=== PATIENT | male | born 1940 | race Two or more races ===

== ENCOUNTER 2024-03-12 14:21 | Emergency (ER) | payer OTHER, SELFPAY ==
[2024-03-12 14:28] VITALS: BP 121/63
--- NOTE | 2024-03-12 17:36 | ED.MUSCINJ ---
HPI-Injury
General
Chief Complaint: Musculo-Skeletal Complaint
Source: patient
Exam Limitations: none
Time Seen by Provider: 03/12/24 15:29
Travel History
Have you had any contact with someone who has COVID-19?: No
Do you have any symptoms of coronavirus? Fever > 100 degrees, chills, cough, shortness of breath, sore throat, loss of taste or smell, muscle aches, or headache?: No
History of Present Illness-Injury
Initial Injury comments:
83-year-old male Wednesday dialysis patient presents 9 days after a fall he sustained going into dialysis. He landed awkwardly and since then has had lower back pain that radiates down his right thigh and into his foot. He states
most of his pain is in the right thigh. He has been using a walker to ambulate. No other complaints at this time
Past History
Past History
ED Past Medical History: Other (Renal failure. Pulmonary fibrosis)
ED Past Surgical History: Other (Hemorrhoid surgery)
Phy Exam
Physical Exam
Physical Exam:
General: Well-appearing male no acute respiratory distress HEENT: Normocephalic atraumatic
Heart: Regular rate and rhythm no murmurs
Lungs: Clear no wheeze
Musculoskeletal exam: Lumbar spine nontender. He is tender over the anterior right thigh
Neurologic: Good sensation bilateral lower extremities. Bilateral patellar reflexes 1+
Extremities no cyanosis or
Injury Course
Orders/Labs/Results
Orders:
Orders
03/12/24 15:42
CR Femur - Right Min 2 Vw Urgent
Comment:
Reason For Exam: fall, thigh pain
CR Lumbar Spine 2 Or 3 Views Urgent
Comment:
Reason For Exam: fall, back pain
CR Pelvis - 1 Or 2 Views Urgent
Comment:
Reason For Exam: fall
MDM/Problems Addressed
Differential Diagnosis Includes:
Lower back pain rating down the right leg. X-rays of the back pelvis and right femur pending secondary to trauma. Consider contusion versus radiculopathy versus fracture
I have personally reviewed the x-rays which are negative for acute findings. Suspect underlying radiculopathy. Recommended anti-inflammatories such as prednisone stable for discharge
*Critical Care Note
Total Time (30-74mins, 75-104mins- exclusive of procedures): Not Applicable
ED Attending Note
-
Portions of this chart may have been created with voice recognition software.� Occasional wrong word or��sound alike� substitutions may have occurred due to the inherent limitations of voice recognition software.
Discharge Plan
Departure
Patient Disposition: Home (Routine Discharge)
Date of Disposition: 03/12/24
Time of Disposition: 17:38
Patient with high blood pressure during this ER visit?: No
Discharge Problem:
Radiculopathy
Instructions: Muscle and Bone Pain (DC)
Prescriptions:
New
prednisone 10 mg Tablet
See Rx Instructions .ROUTE .COMPLEX Qty: 30 0RF
Rx Instructions:
Take By Mouth:
40 mg daily x3 days, 30 mg daily x3 days,
20 mg daily x3 days, 10 mg daily x3 days.
No Action
nifedipine [Procardia XL] 30 mg Tablet Extended Release 24hr
30 mg PO DAILY
cilostazol 100 mg Tablet
100 mg PO BID
aspirin 81 mg Tablet,Delayed Release (Dr/Ec)
81 mg PO DAILY
lorazepam 0.5 mg Tablet
0.5 mg PO BID
tamsulosin [Flomax] 0.4 mg Capsule
0.4 mg PO DAILY
bumetanide 1 mg Tablet
1 mg PO BID
montelukast 10 mg Tablet
10 mg PO HS
rosuvastatin 10 mg Tablet
10 mg PO DAILY
budesonide-formoterol 160-4.5 mcg/actuation Hfa Aerosol Inhaler
2 puff INHALATION BID PRN (Reason: shortness of breath)
nebivolol 2.5 mg Tablet
2.5 mg PO DAILY
cholecalciferol (vitamin D3) 50 mcg (2,000 unit) Tablet
50 mcg PO DAILY
albuterol sulfate 90 mcg/actuation Aerosol Powdr Breath Activated
2 inh INHALATION Q6H PRN (Reason: shortness of breath)
vitamin B complex-folic acid 2,000 mcg Capsule
1 cap PO DAILY
Referrals:
Hermelindo Wyatt DO [Family Provider] -
Activity Restrictions/Additional Instructions:
Use Tylenol for pain. Continue with prednisone peer return if worse otherwise follow-up with your family doctor
Interventions
Interventions:
*Risk Screen - Suicide Last Done: 03/12/24 16:41
*General Assessment Last Done: 03/12/24 16:41
*Neglect/Abuse Screening Last Done: 03/12/24 16:41
*ED COVID-19 Vaccine History Last Done: 03/12/24 14:32
ED-Musculoskeletal Assessment Last Done: 03/12/24 16:41
Discharge Date and Time
Print Language: MONGOLIAN
== END 2024-03-12 18:11 | disposition home or self-care (01) ==
LOC: EMR 14:21
PROVIDERS: EMERGENCY PHYSICIAN Emergency Medicine; FAMILY PHYSICIAN Family Medicine
DX: M54.10 Radiculopathy, site unspecified (principal); N19 Unspecified kidney failure; J84.10 Pulmonary fibrosis, unspecified; Z99.2 Dependence on renal dialysis
CPT/HCPCS: 99283; 72100; 72170; 73552

== ENCOUNTER 2025-02-21 14:34 | Emergency (ER) | payer OTHER, SELFPAY ==
[2025-02-21 14:42] VITALS: BP 114/41
[2025-02-21 14:43] VITALS: BP 114/41
[2025-02-21 14:56] LABS: % Basophils 0.4 % (0-2); % Eosinophils 0.9 % (0-6); % Immature Granulocytes 0.9 % (0-0.5); % Lymphocytes 8.4 % (20.5-51.1); % Neutrophils 87.4 % (42.2-75.2); Absolute Basophils 0.1 10^3/uL (0-0.2); Absolute Eosinophils 0.2 10^3/uL (0-0.7); Absolute Immature Granulocytes 0.2 10^3/uL (0-0.05); Absolute Lymphocytes 1.7 10^3/uL (1.2-3.4); Absolute Monocytes 0.4 10^3/uL (0.1-0.6); Absolute Neutrophils 17.8 10^3/uL (1.4-6.5); Hematocrit 35.1 % (39.0-52.0); Hemoglobin 11.4 g/dL (13.0-18.0); Mean Corp Hgb Conc. 32.5 g/dL (33.0-37.0); Mean Corpuscular Hgb 29.5 pg (27.0-31.0); Mean Corpuscular Volume 90.7 fL (80.0-94.0); Mean Platelet Volume 9.5 fL (7.4-10.4); Nucleated Red Blood Cells % 0 % (-); Platelet Count 240 10^3/uL (130-400); Red Blood Cell Count 3.87 10^6/uL (4.70-6.10); Red Cell Dist. Width 15.5 % (11.5-14.5); White Blood Cell Count 20.4 10^3/uL (4.8-10.8)
[2025-02-21 15:00] VITALS: BP 103/86
[2025-02-21 15:23] LABS: Troponin I < 0.012 ng/ml
[2025-02-21 15:44] LABS: ALT (SGPT) 11 U/L (0-50); AST (SGOT) 24 U/L (17-59); Albumin 3.9 g/dl (3.5-5.0); Alkaline Phosphatase 119 U/L (38-126); Blood Urea Nitrogen 28 mg/dl (9-20); Calcium 8.1 mg/dl (8.4-10.2); Carbon Dioxide 30 mmol/L (22-30); Chloride 101 mmol/L (98-107); Glucose 157 mg/dl (70-99); Potassium 3.7 mmol/L (3.5-5.1); Sodium 138 mmol/L (135-145); Total Bilirubin 0.7 mg/dl (0.2-1.3); Total Protein 7.2 g/dl (6.3-8.2); eGFR 15.44
[2025-02-21 16:00] VITALS: BP 111/58
[2025-02-21 17:00] VITALS: BP 108/54
[2025-02-21 17:43] VITALS: BP 116/52
[2025-02-21 18:21] LABS: Troponin I < 0.012 ng/ml
--- NOTE | 2025-02-21 18:33 | ED.GENMED ---
History of Present Illness
General
Chief Complaint: Chest Pain
Time Seen by Provider: 02/21/25 15:08
History of Present Illness
History of Present Illness:
84-year-old male with history of CKD on dialysis presents the emergency department for evaluation after vomiting and a syncopal event. He states he began having some discomfort in the chest toward the end of his dialysis session, felt as though he
had to vomit, he vomited then promptly syncopized and was unresponsive for several seconds. He states upon awakening his chest pain is since resolved. States that he had eaten something abnormal 2 days ago and since that time is felt as though he
wanted to vomit. At present he denies chest pain or shortness of breath.
Past History
Past History
ED Past Medical History: Other (Renal failure. Pulmonary fibrosis)
ED Past Surgical History: Other (Hemorrhoid surgery)
Review of Systems
Review of Systems
Allergies reviewed?: Yes
All Other Systems: ROS reviewed and negative except as documented in HPI and ROS
Phy Exam
Physical Exam
Physical Exam:
GEN: Well appearing, NAD, WDWN
HEENT: Oral mucosa moist, no scleral icterus
Cardiac: Regular rate and rhythm, no murmur
Lung: No respiratory distress, no tachypnea, dry crackles heard throughout lung glass bilaterally
MSK: No gross deformity or injuries
Skin: Good color, no pallor or jaundice, no rashes
Neuro: AO x3, moves all extremities freely
Psych: Calm, cooperative
Scores
Heart Score for Chest Pain Patients
STEMI patient?: No
History: Slightly or Non-Suspicious
ECG: Normal
Age: >/= 65 years
Risk Factors: 1 or 2 Risk Factors
Troponin: </= Normal Limit
Heart Score for Chest Pain Patients: 3
Heart Score Risk: 2.5% MACE over next 6 weeks
Course
Orders/Labs/Results
Orders:
Orders
02/21/25 14:37
EKG [Electrocardiogram (*1)] Urgent
Reason for Study: Chest Pain
02/21/25 14:38
EKG- Treatment ONCE
02/21/25 14:41
Complete Blood Count/With Diff Urgent
Comprehensive Metabolic Panel Urgent
Troponin I Urgent
02/21/25 16:02
CR Chest - 2 Views Urgent
Comment:
Reason For Exam: SOB
02/21/25 17:33
Electrocardiogram (*1) Urgent
Reason for Study: Chest Pain
EKG- Treatment ONCE
02/21/25 17:51
Troponin I Urgent
Abnormal Lab Results
02/21/25
14:41
WBC 20.4 H 10^3/uL
(4.8-10.8)
RBC 3.87 L 10^6/uL
(4.70-6.10)
Hgb 11.4 L g/dL
(13.0-18.0)
Hct 35.1 L %
(39.0-52.0)
MCHC 32.5 L g/dL
(33.0-37.0)
RDW 15.5 H %
(11.5-14.5)
Abs Immat Gran (auto) 0.2 H 10^3/uL
(0-0.05)
Absolute Neuts (auto) 17.8 H 10^3/uL
(1.4-6.5)
Immature Gran % 0.9 H %
(0-0.5)
Neutrophils % 87.4 H %
(42.2-75.2)
Lymphocytes % 8.4 L %
(20.5-51.1)
BUN 28 H mg/dl
(9-20)
Creatinine 3.7 H mg/dL
(0.7-1.3)
Glucose 157 H mg/dl
(70-99)
Calcium 8.1 L mg/dl
(8.4-10.2)
02/21/25 14:41
02/21/25 14:41
Vital Signs
Initial and Last Documented VS:
Initial Vital Signs
Temp
97.7 F
02/21/25 14:38
Last Documented Vital Signs
Temp Pulse Resp BP Pulse Ox
97.7 F 84 18 116/52 98
02/21/25 14:38 02/21/25 17:43 02/21/25 17:43 02/21/25 17:43 02/21/25 14:46
MDM/Problems Addressed
MDM/Problems Addressed:
Initial repeat troponin is negative. The patient be chest pain free in the ED. Suspect this chest pain was esophageal spasm preceding his vomiting episode. Syncope was most likely vasovagal. Remained stable with unremarkable labs except for
leukocytosis which I feel is most likely a stress response as he has no fever or other infectious symptoms at this time. Discharged in stable condition
*Critical Care Note
Total Time (30-74mins, 75-104mins- exclusive of procedures): Not Applicable
ED Attending Note
-
Portions of this chart may have been created with voice recognition software.� Occasional wrong word or��sound alike� substitutions may have occurred due to the inherent limitations of voice recognition software.
Discharge Plan
Departure
Patient Disposition: Home (Routine Discharge)
Date of Disposition: 02/21/25
Time of Disposition: 18:33
Patient with high blood pressure during this ER visit?: No
Discharge Problem:
Syncope, vasovagal, Vomiting
Instructions: Syncope (fainting)
Prescriptions:
No Action
nifedipine [Procardia XL] 30 mg Tablet Extended Release 24hr
30 mg PO DAILY
cilostazol 100 mg Tablet
100 mg PO BID
aspirin 81 mg Tablet,Delayed Release (Dr/Ec)
81 mg PO DAILY
lorazepam 0.5 mg Tablet
0.5 mg PO BID
tamsulosin [Flomax] 0.4 mg Capsule
0.4 mg PO DAILY
bumetanide 1 mg Tablet
1 mg PO BID
montelukast 10 mg Tablet
10 mg PO HS
rosuvastatin 10 mg Tablet
10 mg PO DAILY
budesonide-formoterol 160-4.5 mcg/actuation Hfa Aerosol Inhaler
2 puff INHALATION BID PRN (Reason: shortness of breath)
nebivolol 2.5 mg Tablet
2.5 mg PO DAILY
cholecalciferol (vitamin D3) 50 mcg (2,000 unit) Tablet
50 mcg PO DAILY
albuterol sulfate 90 mcg/actuation Aerosol Powdr Breath Activated
2 inh INHALATION Q6H PRN (Reason: shortness of breath)
vitamin B complex-folic acid 2,000 mcg Capsule
1 cap PO DAILY
prednisone 10 mg Tablet
See Rx Instructions .ROUTE .COMPLEX Qty: 30 0RF
Rx Instructions:
Take By Mouth:
40 mg daily x3 days, 30 mg daily x3 days,
20 mg daily x3 days, 10 mg daily x3 days.
Referrals:
Hermelindo Wyatt DO [Family Provider] -
Interventions
Interventions:
*Risk Screen - Suicide Last Done: 02/21/25 14:40
*General Assessment Last Done: 02/21/25 14:40
*Neglect/Abuse Screening Last Done: 02/21/25 14:40
*ED- Fall Risk Assessment Last Done: 02/21/25 14:40
*ED COVID-19 Vaccine History Last Done: 02/21/25 14:40
*Nursing Disposition Last Done: 02/21/25 18:37
ED- Cardiac Assessment Last Done: 02/21/25 14:52
Discharge Date and Time
Discharge Date/Time: 02/21/25 18:38
Print Language: CITIZEN OF [place]
== END 2025-02-21 18:38 | disposition home or self-care (01) ==
LOC: EMR 14:34
PROVIDERS: Physician Assistant; EMERGENCY PHYSICIAN Emergency Medicine; FAMILY PHYSICIAN Family Medicine
DX: R55 Syncope and collapse (principal); R11.10 Vomiting, unspecified; R07.89 Other chest pain; N18.6 End stage renal disease; Z99.2 Dependence on renal dialysis
CPT/HCPCS: 99285; 71046; 80053; 84484; 85025; 93005

== ENCOUNTER 2025-06-02 15:25 | Inpatient (IN) | payer OTHER, SELFPAY ==
[2025-06-02] VITALS (9 sets, daily range): BP systolic 89–137; BP diastolic 45–80; BMI 23.1
[2025-06-02 12:04] LABS: Hematocrit 27.9 % (39.0-52.0); Hemoglobin 8.9 g/dL (13.0-18.0); Mean Corp Hgb Conc. 31.9 g/dL (33.0-37.0); Mean Corpuscular Volume 88.6 fL (80.0-94.0); Nucleated Red Blood Cells % 0 % (-); Platelet Count 200 10^3/uL (130-400); Red Cell Dist. Width 14.7 % (11.5-14.5)
--- NOTE | 2025-06-02 12:20 | ED.GENMED ---
History of Present Illness
<Nicolasa Thomas BUDGET EXAMINER - Last Filed: 06/02/25 12:22>
General
Chief Complaint: Change in Mental Status
Time Seen by Provider: 06/02/25 12:19
<Elfego Turpin MD - Last Filed: 06/02/25 14:25>
General
Source: patient, records, family and ambulance crew
Exam Limitations: altered mental status
Nursing documentation reviewed up to this point in time: agreed with
History of Present Illness
History of Present Illness:
85-year-old male with a past medical history of ESRD on dialysis, BPH, hyperlipidemia, hypertension who presents to the ER with his family via EMS for evaluation of a change in mental status. According to his patient was in his normal state of
health this morning, had full dialysis session yesterday. He woke up around 5 AM and around 6 AM was preparing his medications to take and shortly thereafter became very lethargic and confused. EMS was called to bring her to the hospital. Per EMS
on their arrival patient lethargic, difficult to arouse, pinpoint pupils. He was given Narcan with minimal response.
According to his family, he expressed some uncertainty about whether he may have taken the wrong medications this morning�apparently lives with his son who is on seizure medications including Clozaril, Depakote, Paxil. They report that at baseline
he is awake and alert, oriented and independent.
Past History
<Nicolasa Thomas BUDGET EXAMINER - Last Filed: 06/02/25 12:22>
Past History
ED Past Medical History: Other (Renal failure. Pulmonary fibrosis)
ED Past Surgical History: Other (Hemorrhoid surgery)
Review of Systems
<Elfego Turpin MD - Last Filed: 06/02/25 14:25>
Review of Systems
Unable to obtain full review of systems at this time due to: other (Mental status change)
All Other Systems: Not applicable
Phy Exam
<Elfego Turpin MD - Last Filed: 06/02/25 14:25>
Physical Exam
Physical Exam:
General: Patient is lethargic, groans to verbal and physical stimuli but not opening eyes
Head: Normocephalic, atraumatic
Eyes: Conjunctiva normal, pupils pinpoint bilaterally
Throat: Airway intact, appears to be protecting his airway and handling secretions
Neck: Trachea midline, supple without meningismus
Lungs: Clear to auscultation bilaterally, no wheezing, rales, rhonchi
Heart: Regular rate and rhythm, faint systolic murmur
Abd: Soft, non distended, no apparent tenderness
Neuro: Lethargic, groans to voice, he does respond to painful stimuli in all extremities
Skin: No signs of acute trauma
Extremities: Fistula noted left upper extremity, old fistula on right upper extremity; no edema noted in lower extremities
Scores
<Elfego Turpin MD - Last Filed: 06/02/25 14:25>
Heart Failure Risk
Heart Failure Risk Score: Not Applicable
Heart Score for Chest Pain Patients
STEMI patient?: Not applicable
Withdrawal Assessment of Alcohol
Withdrawal Assessment Completed?: Not applicable
Course
<Nicolasa Thomas, BUDGET EXAMINER - Last Filed: 06/02/25 12:22>
Orders/Labs/Results
Orders:
Orders
06/02/25 11:41
EKG [Electrocardiogram (*1)] Urgent
Reason for Study: Syncope
06/02/25 11:42
EKG- Treatment ONCE
06/02/25 11:52
Complete Blood Count/With Diff Urgent
Comprehensive Metabolic Panel Urgent
06/02/25 12:24
CT Head W/o Iv Contrast Urgent
Comment:
Reason For Exam: chanbge in mental status
06/02/25 12:25
TSH Reflex To Free T4 Urgent
Urinalysis Reflex To Culture Urgent
06/02/25 12:28
Drug Screen, Urine [Urine Drug Abuse Screen] Urgent
06/02/25 12:40
Add On- LAB Urgent
Tests Added?: TSH w/ Reflex free T4
06/02/25 13:31
CR Chest Portable - 1 View Urgent
Comment:
Reason For Exam: confused, weak
Reason Study Needs to be Portable: Unable to Transport
06/02/25 13:56
Naloxone [Narcan] 1 mg IV STAT STA
Abnormal Lab Results
06/02/25
11:52
RBC 3.15 L 10^6/uL
(4.70-6.10)
Hgb 8.9 L g/dL
(13.0-18.0)
Hct 27.9 L %
(39.0-52.0)
MCHC 31.9 L g/dL
(33.0-37.0)
RDW 14.7 H %
(11.5-14.5)
Neutrophils % 76.6 H %
(42.2-75.2)
Lymphocytes % 16.4 L %
(20.5-51.1)
Carbon Dioxide 32 H mmol/L
(22-30)
BUN 21 H mg/dl
(9-20)
Creatinine 2.9 H mg/dL
(0.7-1.3)
Glucose 166 H mg/dl
(70-99)
Albumin 3.4 L g/dl
(3.5-5.0)
06/02/25 11:52
06/02/25 11:52
Vital Signs
Initial and Last Documented VS:
Initial Vital Signs
Temp Pulse Resp BP Pulse Ox
36.4 C 88 15 89/45 92
06/02/25 11:43 06/02/25 11:43 06/02/25 11:43 06/02/25 11:43 06/02/25 11:43
Last Documented Vital Signs
Temp Pulse Resp BP Pulse Ox
36.4 C 94 19 118/65 94
06/02/25 11:43 06/02/25 14:00 06/02/25 14:00 06/02/25 14:00 06/02/25 12:45
<Elfego Turpin MD - Last Filed: 06/02/25 14:25>
Orders/Labs/Results
Orders:
Orders
06/02/25 11:41
EKG [Electrocardiogram (*1)] Urgent
Reason for Study: Syncope
06/02/25 11:42
EKG- Treatment ONCE
06/02/25 11:52
Complete Blood Count/With Diff Urgent
Comprehensive Metabolic Panel Urgent
06/02/25 12:24
CT Head W/o Iv Contrast Urgent
Comment:
Reason For Exam: chanbge in mental status
06/02/25 12:25
TSH Reflex To Free T4 Urgent
Urinalysis Reflex To Culture Urgent
06/02/25 12:28
Drug Screen, Urine [Urine Drug Abuse Screen] Urgent
06/02/25 12:40
Add On- LAB Urgent
Tests Added?: TSH w/ Reflex free T4
06/02/25 13:31
CR Chest Portable - 1 View Urgent
Comment:
Reason For Exam: confused, weak
Reason Study Needs to be Portable: Unable to Transport
06/02/25 13:56
Naloxone [Narcan] 1 mg IV STAT STA
Abnormal Lab Results
06/02/25
11:52
RBC 3.15 L 10^6/uL
(4.70-6.10)
Hgb 8.9 L g/dL
(13.0-18.0)
Hct 27.9 L %
(39.0-52.0)
MCHC 31.9 L g/dL
(33.0-37.0)
RDW 14.7 H %
(11.5-14.5)
Neutrophils % 76.6 H %
(42.2-75.2)
Lymphocytes % 16.4 L %
(20.5-51.1)
Carbon Dioxide 32 H mmol/L
(22-30)
BUN 21 H mg/dl
(9-20)
Creatinine 2.9 H mg/dL
(0.7-1.3)
Glucose 166 H mg/dl
(70-99)
Albumin 3.4 L g/dl
(3.5-5.0)
06/02/25 11:52
06/02/25 11:52
Vital Signs
Initial and Last Documented VS:
Initial Vital Signs
Temp Pulse Resp BP Pulse Ox
36.4 C 88 15 89/45 92
06/02/25 11:43 06/02/25 11:43 06/02/25 11:43 06/02/25 11:43 06/02/25 11:43
Last Documented Vital Signs
Temp Pulse Resp BP Pulse Ox
36.4 C 94 19 118/65 94
06/02/25 11:43 06/02/25 14:00 06/02/25 14:00 06/02/25 14:00 06/02/25 12:45
<Elfego Turpin MD - Last Filed: 06/02/25 14:25>
MDM/Problems Addressed
Differential Diagnosis Includes:
Polypharmacy/unintentional ingestion, acute CVA, brain bleed, infection such as UTI or pneumonia, uremia
MDM/Problems Addressed:
85-year-old male presents to the ER for evaluation of a change in mental status�significantly lethargic started rather abruptly around 6 AM this morning. He had been awake and normal for about an hour his says. There is a question of whether
he may have accidentally taken his son's medications instead of his own. He did receive some Narcan from EMS with minimal response. Vitals here was significant for mild hypotension but otherwise within acceptable range. Although he is very
lethargic he appears to be protecting his airway right now. His Accu-Chek was normal. Physical exam is as noted that she does have pinpoint pupils. Can trial Narcan here as well although no reported opioids in the house. Will place an IV and
send usual labs including a CBC and a CMP. Check thyroid studies. Will check EKG. Urinalysis, UDS, chest x-ray. Will send for a stat CT head. Monitor very closely and reassess after the above.
Initial labs reviewed: CBC shows anemia which is chronic in the setting of renal disease slightly lower than usual but greater than 8, no indication for emergent transfusion at this point. CMP shows findings consistent with ESRD but no significant
electrolyte derangements. CT head negative for any acute abnormalities. EKG shows sinus rhythm. Blood pressure improved with observation. Patient is slightly more awake here but still very lethargic. Suspect that this was likely medication
related, lower suspicion for stroke or seizure. Plan to admit for continued observation until back to baseline. Discussed case with hospitalist.
Chronic conditions affecting care:
ESRD
<Nicolasa Thomas NP - Last Filed: 06/02/25 12:22>
*Pulse Oximetry
SaO2: 92
Nasal Cannula flow liters per minute: 2
<Elfego Turpin MD - Last Filed: 06/02/25 14:25>
*Radiology
Radiology exam reviewed: preliminary read by ED provider and radiology read reviewed
*Pulse Oximetry
Patient hypoxic: yes (88%)
*EKG
Interpreted by ED Provider?: Yes
Comparison EKG: no changes
Heart Rate: 91
Rate: normal
Rhythm: sinus
[place]: normal axis
Interval: normal interval
QRS Pattern: normal QRS
Ischemia: no ischemia
*Critical Care Note
Total Time (30-74mins, 75-104mins- exclusive of procedures): Not Applicable
Data Reviewed
Review of Other/Old Records Reveals: Records
Source: patient, spouse, family and ambulance crew
<Elfego Turpin MD - Last Filed: 06/02/25 14:25>
Patient Management
Discussion with other providers: Hospitalist (Discussed with hospitalist)
Escalation/DeEscalation of care consider admission/obs:
Admission indicated
ED Attending Note
<Nicolasa Thomas NP - Last Filed: 06/02/25 12:22>
-
Portions of this chart may have been created with voice recognition software.� Occasional wrong word or��sound alike� substitutions may have occurred due to the inherent limitations of voice recognition software.
Discharge Plan
Departure
Patient Disposition: Admit
Date of Disposition: 06/02/25
Time of Disposition: 14:25
Admit to doctor: Dilcia
Presentation/result/management discussed w/ accepting MD/DO: Hospitalist
Discharge Problem:
Encephalopathy
Prescriptions:
No Action
nifedipine [Procardia XL] 30 mg Tablet Extended Release 24hr
30 mg PO DAILY
cilostazol 100 mg Tablet
100 mg PO BID
aspirin 81 mg Tablet,Delayed Release (Dr/Ec)
81 mg PO DAILY
lorazepam 0.5 mg Tablet
0.5 mg PO BID
tamsulosin [Flomax] 0.4 mg Capsule
0.4 mg PO DAILY
bumetanide 1 mg Tablet
1 mg PO BID
montelukast 10 mg Tablet
10 mg PO HS
rosuvastatin 10 mg Tablet
10 mg PO DAILY
budesonide-formoterol 160-4.5 mcg/actuation Hfa Aerosol Inhaler
2 puff INHALATION BID PRN (Reason: shortness of breath)
nebivolol 2.5 mg Tablet
2.5 mg PO DAILY
cholecalciferol (vitamin D3) 50 mcg (2,000 unit) Tablet
50 mcg PO DAILY
albuterol sulfate 90 mcg/actuation Aerosol Powdr Breath Activated
2 inh INHALATION Q6H PRN (Reason: shortness of breath)
vitamin B complex-folic acid 2,000 mcg Capsule
1 cap PO DAILY
prednisone 10 mg Tablet
See Rx Instructions .ROUTE .COMPLEX Qty: 30 0RF
Rx Instructions:
Take By Mouth:
40 mg daily x3 days, 30 mg daily x3 days,
20 mg daily x3 days, 10 mg daily x3 days.
Referrals:
Hermelindo Wyatt DO [Family Provider, Family Practice]
Interventions
Interventions:
*Risk Screen - Suicide Last Done: 06/02/25 11:43
*General Assessment Last Done: 06/02/25 11:43
*Neglect/Abuse Screening Last Done: 06/02/25 11:43
Discharge Date and Time
Print Language: BENGALI
[2025-06-02 12:52] LABS: ALT (SGPT) 10 U/L (0-50); AST (SGOT) 18 U/L (17-59); Albumin 3.4 g/dl (3.5-5.0); Alkaline Phosphatase 100 U/L (38-126); Blood Urea Nitrogen 21 mg/dl (9-20); Calcium 8.7 mg/dl (8.4-10.2); Carbon Dioxide 32 mmol/L (22-30); Chloride 103 mmol/L (98-107); Glucose 166 mg/dl (70-99); Potassium 4.4 mmol/L (3.5-5.1); Sodium 137 mmol/L (135-145); Total Protein 6.5 g/dl (6.3-8.2); eGFR 20.55
[2025-06-02] MEDS: NARCAN 1 MG IV (14:00)
--- NOTE | 2025-06-02 14:28 | W.PN.UPDATE ---
Update Note
Progress Note Update
I could not get any information from the patient dan AMS
Information gathered by chart review and speaking with the son, family and ER staff.
This note serves as an addendum to the H&P by shear grinder operator JUMA�
Khadijah Reza
HPI�
85M HX ESRD on HD ( MWF) , BPH, hyperlipidemia, hypertension who presents to the ER with his family via EMS :
- for evaluation of a change in mental status.
- Per patient was in his normal state of health this morning, had full dialysis session yesterday.
- He woke up around 5 AM and around 6 AM was preparing his medications to take and shortly thereafter became very lethargic and confused.
- Per EMS - on their arrival patient lethargic, difficult to arouse, pinpoint pupils - was given Narcan with minimal response.
- Per s family, he expressed some uncertainty about whether he may have taken the wrong medications this morning
� apparently lives with his son who is on seizure medications including Clozaril, Depakote, Paxil.
- report that at baseline he is awake and alert, oriented and independent.
NEG HCT
Labs unremarkable.
Patient very lethargic but protecting his airway. Still very far from his baseline
Relevant VS
Temp Pulse Resp BP Pulse Ox
97.5 F 94 19 118/65 94
06/02/25 11:43 06/02/25 14:00 06/02/25 14:00 06/02/25 14:00 06/02/25 12:45
PE
Gen: lethargic
HEENT:anicteric
Neck:supple
Lungs:CTA
Cor:RRR S1 S2
Abdomen:�soft and benig exam
ROCK CRUSHER: lethargic
MS:no edema
Psych: too lethargic to exam
Relevant Data�
02/21/25 06/02/25 06/02/25
14:41 11:52 12:25
WBC 20.4 H 8.1
Hgb 11.4 L 8.9 L
Carbon Dioxide 30 32 H
Creatinine 3.7 H 2.9 H
eGFR 15.44 20.55
TSH (Reflex) Pending
NO prior hospitalist admission:
ASSESSMENT & PLAN
Pending Rx reconciliation
AMS - Hypoactive lethargic TME due to accidentally medicated with Clozapine
Minimally responsive to Narcan by EMS
Hemodynamically stable
NEG HCT
Unremarkable labs with chr abnormality
- Gradually relatively more responsive but wakefullness is not sustained
- protecting AW
- TLM window dresser
- aspiration precaution
- Hold all PO Meds till safe to swallow
- ST to evaluate for swallowing function
- Supportive care
ESRD on HD
CHD on F - last completed HD on Wednesday
Ortho hypotension HX
- on WILDLIFE CONSERVATION PROFESSOR Midodrine 5mg PRN
- Nephro consulted for HD on Wednesday if he still around
Pul Fibrosis HX
- on WILDLIFE CONSERVATION PROFESSOR Montelukast, budesonide - formoterol IHN
Benign HTN
- on WILDLIFE CONSERVATION PROFESSOR Nebivolol
Dyslipidemia
- WILDLIFE CONSERVATION PROFESSOR Rosuvastatin
BPH
- on Flomax
DVT Px: SQH
Full code
IP TLM
--- NOTE | 2025-06-02 14:36 | HPS.HSE ---
Family Physician
-
Family Physician: Hermelindo Wyatt
Chief Complaint
-
change in mental status
History of Present Illness
Patient is a 85-year-old male with past medical history significant for ESRD on dialysis, BPH, hyperlipidemia, hypertension and depression/anxiety who presented to [facility] ED for evaluation of change in mental status. Patient family at bedside to
assist with HPI. Son and patients spouse reported that this morning patient woke and was at baseline and acutely became lethargic and disoriented. He expressed he thought he may have ingested some of the wrong medications prior to disorientation
(son in home prescribed Clozaril, Depakote, Paxil). He is on HD on with a complete session yesterday without any concerns. Denies any recent sickness, dizziness or weakness.
Medical History
Past Medical History
Past Medical History: Reports Other
Additional Past Medical History:
ESRD on dialysis
BPH
hyperlipidemia
hypertension
depression/anxiety
Past Surgical History: Reports Other
Additional Past Surgical History:
Fistula placement
Social History
Tobacco: Non-smoker
Alcohol: None
Personal:
Living: With Family
Family History
Family History: Not pertinent
Allergies / Home Medications
Allergies reflects when Allergies were last updated in [employer].
Home Medications with original date entered in [facility]
Allergy/Medication List:
Medications on admission are unable to be verified or confirmed at this time.
If medication reconciliation has not been performed, why?: Other (unable to complete med rec at this time )
Review of Systems
-
Unable to obtain full review of systems at this time due to: Other (acute mental status change, does not follow commands or answer questioning )
Physical Exam
Vital Signs
Vital Signs
Temp Pulse Resp BP Pulse Ox
97.5 F 94 19 118/65 94
06/02/25 11:43 06/02/25 14:00 06/02/25 14:00 06/02/25 14:00 06/02/25 12:45
Physical Exam
General: No Apparent Distress, Appears Chronically Ill and Other (lethargic, groans with tactile stimuli )
HEENT: NormoCephalic and Atraumatic
Respiratory: Clear and Non Labored Respirations
Cardiac: S1/S2 and Regular Rhythm; No Murmur, Rub or Gallop
Breast: Deferred by me
GI: Soft, Non Tender, Non Distended and Normal Bowel Sounds
Rectal: Deferred by Provider
Genito-urinary: Deferred by me
Musculoskeletal: No Clubbing, No Cyanosis and No Edema
Skin: Other (RUE fistula with dry dressing in place )
Neuro: Sedated (responds to tactile stimuli )
Laboratory Results
-
06/02/25 11:52
06/02/25 11:52
Laboratory Results
Total Bilirubin 0.6 mg/dl (0.2-1.3) 06/02/25 11:52
AST 18 U/L (17-59) 06/02/25 11:52
ALT 10 U/L (0-50) 06/02/25 11:52
Alkaline Phosphatase 100 U/L (38-126) 06/02/25 11:52
Data Reviewed
-
CT Scan: Report Reviewed by me (Head: No acute intracranial abnormality noted.)
Medical Tests (Nuc Med, Echo, EKG etc): Report Reviewed by me (EKG: NORMAL SINUS RHYTHM ANTERIOR INFARCT , AGE UNDETERMINED)
Lab Data: Labs Reviewed by me (hgb 8.9, hct 27.9, BUN 21, Creat 2.9, eGFR 20.55)
Impression/Plan
-
IMPRESSION/PLAN:
#acute change in mental status likely 2/2 ingestion of wrong medication (Clozapine)
hgb 8.9, hct 27.9
EKG: NORMAL SINUS RHYTHM
ANTERIOR INFARCT , AGE UNDETERMINED
CXR:
Head CT: No acute intracranial abnormality noted.
gradually relatively more responsive but wakefulness is not sustained per family
- Admit to telemetry
- monitor mental status
- protect airway
- NPO, no medications until more alert and safe to swallow
- Consult ST or swallow eval
- supportive care
#ESRD
dialysis M-W- - last full session 06/01/2025
BUN 21, Creat 2.9, eGFR 20.55
- Consult Nephrology for HD if still admitted Wednesday
#BPH
#hyperlipidemia
#hypertension
#depression/anxiety
*family unaware of daily medication regimen, will obtain list and bring back to hospital tonight or tomorrow, med rec not completed*
Code status: full code
DVT prophylaxis: heparin sq
[2025-06-02 17:53] LABS: Urine Character Clear (Clear)
[2025-06-02] MEDS: HEPARIN 5000 UNITS SC ×2 (18:00→23:32)
[2025-06-02 18:02] LABS: Urine Red Blood Cell 0-2 /HPF (0-2); Urine White Cell 0-2 /HPF (0-5)
--- NOTE | 2025-06-02 18:40 | PTCARENOTE ---
Patient received to 422 accompanied by son. Arousable to verbal stimuli, speech slow and garbled at times , but 'much clearer' than previously as reported by son. Voided into urinal, specimen sent. Son at bedside. Npo status maintained until
seen by speech. Mouth care provided.
--- NOTE | 2025-06-02 23:00 | PTCARENOTE ---
Pt restless in bed, continues to state 'I need to get my . I need to go to her room.' This RN told Pt numerous times he is in the hospital and his is at home, unable to reorient. Pt insistent on getting oob, Pt oob in hallway with this RN,
Pt states 'Oh I am in the hospital.' Pt very unsteady. Pt back to bed, bed alarm in place. call roche within reach.
[2025-06-03 05:45] VITALS: BP 101/69
[2025-06-03] MEDS: HEPARIN 5000 UNITS SC (07:49)
[2025-06-03 07:50] LABS: Hematocrit 29.4 % (39.0-52.0); Hemoglobin 9.2 g/dL (13.0-18.0); Mean Corp Hgb Conc. 31.3 g/dL (33.0-37.0); Mean Corpuscular Volume 88.6 fL (80.0-94.0); Platelet Count 195 10^3/uL (130-400); Red Cell Dist. Width 14.6 % (11.5-14.5)
[2025-06-03 08:13] LABS: Blood Urea Nitrogen 26 mg/dl (9-20); Calcium 8.9 mg/dl (8.4-10.2); Carbon Dioxide 30 mmol/L (22-30); Chloride 106 mmol/L (98-107); Estimated Creatinine Clearance 13 ml/min; Glucose 96 mg/dl (70-99); Potassium 4.4 mmol/L (3.5-5.1); Sodium 140 mmol/L (135-145); eGFR 15.86
--- NOTE | 2025-06-03 08:54 | W.PN.HOSP.TC ---
Today's Communication/Plan
-
Discharge home with home PT today
Assessment / Plan
Assessment / Plan
HPI: 85-year-old male with past medical history significant for ESRD on dialysis, BPH, hyperlipidemia, hypertension and depression/anxiety who presented to [facility] ED for evaluation of change in mental status. Patient family at bedside to assist with
HPI. Son and patients spouse reported that this morning patient woke and was at baseline and acutely became lethargic and disoriented. He expressed he thought he may have ingested some of the wrong medications prior to disorientation (son in home
prescribed Clozaril, Depakote, Paxil). He is on HD on with a complete session yesterday without any concerns. Denies any recent sickness, dizziness or weakness.
#Acute change in mental status likely 2/2 ingestion of wrong medication (Clozapine)
- Per patient was in his normal state of health this morning, had full dialysis session Wednesday
- He woke up around 5 AM and around 6 AM was preparing his medications to take and shortly thereafter became very lethargic and confused
- Per EMS - on their arrival patient lethargic, difficult to arouse, pinpoint pupils - was given Narcan with minimal response
- Per family, he expressed some uncertainty about whether he may have taken the wrong medications this morning
- Apparently lives with his son who is on seizure medications including Clozaril, Depakote, Paxil.
- Lethargy resolved, mentation back to baseline
- Stable for discharge today, follow-up with PCP in less than 1 week
#Weakness
- Seen by PT, who recommends home PT versus SNF
- Family wishes to take patient home with home PT
#ESRD
- Seen by nephrology, patient gets dialysis Wednesday/Wednesday/Wednesday
- on [employer]PUT[employer] Midodrine 5mg PRN
Pul Fibrosis HX
- on COMPUT[employer] AUDIT[employer] Montelukast, budesonide - formoterol IHN
Benign HTN
- on COMPUTER SYSTEMS AUDITOR Nebivolol
Dyslipidemia
- COMPUT[employer] Rosuvastatin
BPH
- on Flomax
Code status: full code
DVT prophylaxis: heparin sq
Physical Exam
General: Appears weak, no acute distress
HEENT: Normocephalic, Atraumatic, EOMI, MMM
Respiratory: Clear to Auscultation bilaterally
Cardiac: Normal S1/S2, Regular Rate and Rhythm
GI: Soft, Nontender, Nondistended, Normal Bowel Sounds
Extremities: No Clubbing, Cyanosis, or Edema
Neuro: Awake/alert, mentation back to baseline
Psych: Calm, Cooperative
Anticipated Discharge: Today
Subjective/Interval History
-
Date of Service: June 03, 2025
Patient's lethargy has resolved. Mentation back to baseline. Denies chest pain, denies shortness of breath. No fever, no vomiting.
Objective Data
-
Labs:
Laboratory Results
06/03/25
07:34
WBC 5.9
Hgb 9.2 L
Hct 29.4 L
Plt Count 195
Sodium 140
Potassium 4.4
Chloride 106
Carbon Dioxide 30
BUN 26 H
Creatinine 3.6 H
Glucose 96
Calcium 8.9
Vital Signs:
Vital Signs
Temp Pulse Resp BP Pulse Ox
97.5 F 85 20 101/69 93
06/03/25 05:45 06/03/25 05:45 06/03/25 05:45 06/03/25 05:45 06/03/25 05:45
I&O
06/02/25 06/03/25 06/04/25
06:59 06:59 06:59
Output Total 250 / 250
Balance -250 / -250
--- NOTE | 2025-06-03 08:57 | W.CON.NEPH ---
Consultation
-
Date/Time Consultation Requested: 06/03/2025 730 AM
Date/Time Consultation Performed: 06/03/2025 9:00 AM
Requesting Provider: Dr. Barnhart
Performing Provider: Dr. Simmons
Reason for Consultation: End-stage renal disease
Medical History
-
Chief Complaint: End-stage renal disease
History of Present Illness:
Patient is a 85-year-old male with past medical history significant for ESRD on dialysis, BPH, hyperlipidemia, hypertension and depression/anxiety who presented to [facility] ED for evaluation of change in mental status. Patient family at bedside to
assist with HPI. Son and patients spouse reported that this morning patient woke and was at baseline and acutely became lethargic and disoriented. He expressed he thought he may have ingested some of the wrong medications prior to disorientation
(son in home prescribed Clozaril, Depakote, Paxil). He is on HD on with a complete session yesterday without any concerns. Denies any recent sickness, dizziness or weakness.
Past Medical History
ESRD on dialysis
Pulmonary fibrosis
BPH
hyperlipidemia
hypertension
depression/anxiety
Past Surgical History: Reports Other
Additional Past Surgical History:
Fistula placement
Social History
Social History
Tobacco: Non-Smoker
Alcohol: None
Drug: None
Living: With Family
Family History
Family History: Not Pertinent
Allergies / Home Medications
Allergy/AdvReac Type Severity Reaction Status Date / Time
No Known Allergies Allergy Unverified 03/12/24 14:30
�Medication �Instructions �Recorded �Confirmed �Type
albuterol sulfate 90 mcg/actuation 2 inh inhalation Q6H PRN shortness 06/28/23 06/28/23 History
breath activated powder inhaler of breath
aspirin 81 mg tablet,delayed 81 mg PO DAILY 06/28/23 06/28/23 History
release
budesonide-formoterol HFA 160 2 puff inhalation BID PRN 06/28/23 06/28/23 History
mcg-4.5 mcg/actuation aerosol shortness of breath
inhaler
bumetanide 1 mg tablet 1 mg PO BID 06/28/23 06/28/23 History
cholecalciferol (vitamin D3) 50 50 mcg PO DAILY 06/28/23 06/28/23 History
mcg (2,000 unit) tablet
cilostazol 100 mg tablet 100 mg PO BID 06/28/23 06/28/23 History
lorazepam 0.5 mg tablet 0.5 mg PO BID 06/28/23 06/28/23 History
montelukast 10 mg tablet 10 mg PO HS 06/28/23 06/28/23 History
nebivolol 2.5 mg tablet 2.5 mg PO DAILY 06/28/23 06/28/23 History
nifedipine 30 mg tablet,extended 30 mg PO DAILY 06/28/23 06/28/23 History
release 24 hr (Procardia XL)
rosuvastatin 10 mg tablet 10 mg PO DAILY 06/28/23 06/28/23 History
tamsulosin 0.4 mg capsule (Flomax) 0.4 mg PO DAILY 06/28/23 06/28/23 History
vitamin B complex-folic acid 2,000 1 cap PO DAILY 06/28/23 06/28/23 History
mcg capsule
prednisone 10 mg tablet See Rx Instructions .Route 03/12/24 Rx
.COMPLEX #30 tabs
Review of Systems
-
History Source: Patient
All other systems: Negative unless noted
Constitutional: No Symptoms
EENT: No Symptoms
Respiratory: No Symptoms
Cardiac: No Symptoms
Abdomen/GI: No Symptoms
: No Symptoms
Musculoskeletal: No Symptoms
Skin: No Symptoms
Neurological: No Symptoms
Endocrine: No Symptoms
Hematologic/Lymphatic: No Symptoms
Physical Exam
Vital Signs
Vital Signs
Temp Pulse Resp BP Pulse Ox
97.5 F 85 20 101/69 93
06/03/25 05:45 06/03/25 05:45 06/03/25 05:45 06/03/25 05:45 06/03/25 05:45
Lab Results
06/03/25 07:34
06/03/25 07:34
WBC 5.9 10^3/uL (4.8-10.8) 06/03/25 07:34
RBC 3.32 10^6/uL (4.70-6.10) L 06/03/25 07:34
Hgb 9.2 g/dL (13.0-18.0) L 06/03/25 07:34
Hct 29.4 % (39.0-52.0) L 06/03/25 07:34
Plt Count 195 10^3/uL (130-400) 06/03/25 07:34
Sodium 140 mmol/L (135-145) 06/03/25 07:34
Potassium 4.4 mmol/L (3.5-5.1) 06/03/25 07:34
Chloride 106 mmol/L (98-107) 06/03/25 07:34
Carbon Dioxide 30 mmol/L (22-30) 06/03/25 07:34
BUN 26 mg/dl (9-20) H 06/03/25 07:34
Creatinine 3.6 mg/dL (0.7-1.3) H 06/03/25 07:34
eGFR 15.86 06/03/25 07:34
Glucose 96 mg/dl (70-99) 06/03/25 07:34
Calcium 8.9 mg/dl (8.4-10.2) 06/03/25 07:34
Albumin 3.4 g/dl (3.5-5.0) L 06/02/25 11:52
Physical Exam
General: AOx3, Nontoxic , NAD
HEENT: PERRL, EOMI, Anicteric, Conjunctivae Clear, Ear/Nose Intact, Hearing Normal, Oropharynx Clear/Moist, Dentition Intact, Facial Symmetry, Neck Supple, Neck: Trachea Midline, No JVD and No Thyromegaly, no Bruits
Respiratory: coarse to auscultation bilaterally with normal lung excursion, no rales
Cardiac: S1/S2 and Regular Rate/Rhythm
Breast: Deferred by me
Abdomen: Soft, Nontender, Nondistended, Normal Bowel Sounds and No Hepatosplenomegaly
Rectal: Deferred by Provider
Genito-urinary: No Costovertebral Tenderness
Extremities: No Clubbing, No Cyanosis and No Edema
Skin: No Rash or open lesions
Neuro: Nonfocal/Grossly Intact, CN II-XII (Intact) and Strength (Musculoskeletal exam 5 out of 5 both upper and lower extremities)
Hematologic/Lymphatic: No Cervical Lymphadenopathy, No Submandibular Lymphadenopathy and No Supraclavicular Lymphadenopathy
Psych: Mood/afflect pleasant, Insight/judgement good and Appropriate
Vascular: plus 2 pedal and radial pulses
Vascular Access: AVF (Right upper extremity with good thrill and bruit)
Data Reviewed
-
Radiology: Image Personally Visualized and interpreted (Chest x-ray personally reviewed on admission small heart size bilateral pulmonary interstitial pattern of chronic disease noted)
Labs: Labs Reviewed by me (BMP CBC)
Old Records: Reviewed (Reviewed previous emergency room visit records from 02/21/2025 when patient reported with vomiting and syncopal event)
Assessment/Plan
-
Impression:
Acute mental status changes likely due to ingesting wrong medication (Clozapine)
End-stage renal disease Wednesday
BPH
Dyslipidemia
Hypertension
Depression\\anxiety
Pulmonary fibrosis
Anemia
Plan:
HD tomorrow,orders provided
Will administer VALERI therapy on dialysis for anemia
BP meds currently held due to hypotension
Mental status with drastic improvement today as patient was able to have full conversation with me and reports that he dialyzes at [place]
--- NOTE | 2025-06-03 09:44 | PTOTSP ---
Speech Pathology
Clinical Swallow Evaluation
85M with admission for change in mental status likely 2/2 ingestion of wrong medication presents with s/s of a functional oropharyngeal swallow. No overt s/s of aspiration with all consistencies trialed this date. Has some missing dentition on upper
and lower denture requiring him to cut up his food at baseline, not a true oral dysphagia. Aspiration risk is increased at this time 2/2 CXR concerning for PNA and AMS. [employer] service to follow.
Recommend:
1. Soft and Bite Sized (IDDSI 6), thin liquids (IDDSI 0)
2. Meds as best tolerated
3. Safe swallowing strategies small bites, chew well, alternate bites and sips to assist with oral residue, slow rate, soft/moist foods as able
4. Aspiration precautions
5. YOUTH OFF[employer]ER service to follow re: to assess diet level tolerance given current concern for PNA; consider cognitive-communication evaluation if AMS does not improve
[2025-06-03 11:30] VITALS: BP 142/83
[2025-06-03 13:53] VITALS: PULSE 97; O2SAT 94
--- NOTE | 2025-06-03 14:07 | W.DCSUMMARY ---
Discharge Summary
Discharge Data
Date of Admission: 06/02/25
Date of Discharge: 06/03/25
-
Pending Results: No
Hospital Course
Discharge diagnosis:
Drug-induced acute encephalopathy
Lethargy
Weakness
End-stage renal failure on dialysis
Benign prostatic hypertrophy
Essential hypertension
Anxiety/depression
Consults: Nephrology
Head CT:
No acute intracranial abnormality noted.
Hospital course:
85-year-old male with past medical history significant for ESRD on dialysis, BPH, hyperlipidemia, hypertension and depression/anxiety who presented to the ED for evaluation of change in mental status. Son and patient's spouse reported that patient
woke and was at baseline and acutely became lethargic and disoriented. He expressed he thought he may have ingested some of the wrong medications prior to disorientation (son in home prescribed Clozaril, Depakote, Paxil). Patient was observed
overnight. By the following morning, his lethargy resolved. His mentation returned to baseline. He did continue to be weak. He was seen in conjunction with PT, who recommended short-term rehab versus home PT. Family wished to take him home with
home PT. He is medically stable for discharge. He needs to follow-up with his PCP in 1 week.
Disposition: Home with home PT
Discharge planning: Required 36-minute
Discharge Plan
-
Patient Disposition: Home with Home Care
Discharge Diagnosis/Procedures: Lethargy/weakness, likely from accidental ingestion of son's medication
Condition: Good
Diet: Low Fat and Low Cholesterol
Additional Diets: Soft/bite-size diet
Activity: As tolerated
Activity Restrictions/Additional Instructions:
Please follow-up with your primary care provider this week.
Referrals:
Hermelindo Wyatt DO [Family Provider, [facility]] - in less than 1 week
Prescriptions:
Continued
nifedipine [Procardia XL] 30 mg Tablet Extended Release 24hr
30 mg PO DAILY
cilostazol 100 mg Tablet
100 mg PO BID
aspirin 81 mg Tablet,Delayed Release (Dr/Ec)
81 mg PO DAILY
lorazepam 0.5 mg Tablet
0.5 mg PO BID
tamsulosin [Flomax] 0.4 mg Capsule
0.4 mg PO DAILY
bumetanide 1 mg Tablet
1 mg PO BID
montelukast 10 mg Tablet
10 mg PO HS
rosuvastatin 10 mg Tablet
10 mg PO DAILY
budesonide-formoterol 160-4.5 mcg/actuation Hfa Aerosol Inhaler
2 puff INHALATION BID PRN (Reason: shortness of breath)
nebivolol 2.5 mg Tablet
2.5 mg PO DAILY
cholecalciferol (vitamin D3) 50 mcg (2,000 unit) Tablet
50 mcg PO DAILY
albuterol sulfate 90 mcg/actuation Aerosol Powdr Breath Activated
2 inh INHALATION Q6H PRN (Reason: shortness of breath)
vitamin B complex-folic acid 2,000 mcg Capsule
1 cap PO DAILY
prednisone 10 mg Tablet
See Rx Instructions .ROUTE .COMPLEX Qty: 30 0RF
Rx Instructions:
Take By Mouth:
40 mg daily x3 days, 30 mg daily x3 days,
20 mg daily x3 days, 10 mg daily x3 days.
Discharge Orders:
Discharge Patient (As Directed); Ordered 06/03/25
Ordered By: Earl Barnhart
Discharge Date and Time
Discharge Date/Time: 06/03/25 15:05
Print Language: ARMENIAN
--- NOTE | 2025-06-03 14:22 | CM ---
CM reviewed chart, patient asleep bedside, son, Emad, bedside, initial assessment completed. Patient resides with his and son in a two level home with basement, patient has a first floor set up, one small step to enter. Patient is ambulatory
with a walker, receives dialysis [facility]. Son agreeable to referral to [facility] for medication management. Son denies SNF hx for patient. PCP Hermelindo Wyatt, pharmacy [facility], confirms prescription coverage. Referral placed
in [facility]. IMM verbally reviewed with son, provided with copy, placed in chart. CM will continue to follow for all discharge planning needs.
Patient for discharge today, son to transport home.
Plan; home with referral to [facility], outpatient HD
Sarah
== END 2025-06-03 15:05 | disposition home health service (06) | DRG 91 ==
LOC: 4 WEST ACU 15:25
PROVIDERS: Nurse Practitioner Family; ADMITTING PHYSICIAN Internal Medicine; ATTENDING PHYSICIAN Family Medicine; EMERGENCY PHYSICIAN Emergency Medicine; FAMILY PHYSICIAN Family Medicine; OTHER PHYSICIAN Specialist
DX: G92.8 Other toxic encephalopathy (principal); N18.6 End stage renal disease; I12.0 Hypertensive chronic kidney disease with stage 5 chronic kidney disease or end stage renal disease; T50.905A Adverse effect of unspecified drugs, medicaments and biological substances, initial encounter; Z99.2 Dependence on renal dialysis; N40.0 Benign prostatic hyperplasia without lower urinary tract symptoms; F32.A Depression, unspecified; F41.9 Anxiety disorder, unspecified; E78.5 Hyperlipidemia, unspecified; D63.1 Anemia in chronic kidney disease; J84.10 Pulmonary fibrosis, unspecified; Z79.02 Long term (current) use of antithrombotics/antiplatelets; Z79.82 Long term (current) use of aspirin; Z79.899 Other long term (current) drug therapy
CPT/HCPCS: 70450; 71045; 80048; 80053; 80306; 81003; 81015; 84443; 85025; 85027; 87070; 92610; 93005; 96374; 97163; 99285; Q5106